=== PATIENT | female | born 1995 | race Caucasian/White ===

== ENCOUNTER 2021-04-18 16:52 | Observation (INO) ==
[2021-04-18] MEDS ORDERED: IOPAMIDOL 100 ML BOTTLE IV ONE (16:53)
--- NOTE | 2021-04-18 17:06 | Emergency Department Note ---
Abdominal Pain HPI General Chief Complaint: Abdominal Pain Stated Complaint: RLQ Abd pain x2 days Time Seen by Provider: 04/18/21 16:57 Source: patient Mode of arrival: ambulatory Limitations: no limitations History of Present Illness HPI Narrative: Narrative: 26-year-old female with a history of prediabetes, SOHA, and obesity presents the ER to be evaluated for 2 days of right lower quadrant abdominal pain. She states she is never felt pain like this before. It did not start in her flank and migrated to been consistent in the right lower quadrant. She has been nauseous without vomiting. She states she has not eaten anything today. She denies fever, chills, body aches, chest pain or chest pressure she denies dysuria, urgency, frequency or hematuria. She is on the ring contraception. She does not believe she is . She is never had an ovarian cyst rupture or cause issues before. She has no history of abdominal surgery. Her last bowel movement was this morning at approximately 10 and she has been passing gas. She has no other complaints at this time. Related Data Home Medications Medication Instructions Recorded Confirmed segesterone acet 0.15 mg-ethinyl ring VAGINAL 01/13/21 04/18/21 estradiol 0.013 mg/24 hr vaginal ring Previous Rx's Medication Instructions Recorded auto-pap machine #1 ea 03/29/19 Allergies Allergy/AdvReac Type Severity Reaction Status Date / Time lactose Allergy Unknown stomach Verified 04/18/21 15:58 pains Review of Systems ROS ROS Narrative: Narrative: All systems ED: reviewed and negative except as stated. [facility] Narrative Patient History Narrative: Narrative: Medical/Surgical/Family History All Active Problems (Updated 04/18/21 @ 18:31 by Yuan Suarez PA-C) Acute appendicitis (Acute) Fatty infiltration of liver (Acute) RLQ abdominal pain (Acute) Food allergy (Acute) Elevated BP without diagnosis of hypertension (Acute) Prediabetes (Acute) Tonsillar hypertrophy (Chronic) Obstructive sleep apnea (Chronic) Lactose intolerance (Chronic) Medical History Elevated BP without diagnosis of hypertension Food allergy Hypersomnia Lactose intolerance Obstructive sleep apnea Prediabetes Snoring Tonsillar hypertrophy Witnessed episode of apnea Surgical History History of wisdom tooth extraction (~02/2014) Family History Grandfather Heart attack Maternal Father Asthma Mother Thyroid disease Family/Other Sleep apnea siblings per patient Other Family history of skin cancer Family history- stomach cancer Social History Smoking Status: Never smoker Alcohol Intake Frequency: holiday/special occasion only Substance Use: does not use Exam Narrative Narrative: Narrative: Gen: Patient is standing in the room tying the back of her gown when I enter the room. She greets me and is in no distress Eyes: PERRL, no conjunctival injection , and symmetrical lids. Sclerae non icteric HENMT: Normocephalic Atraumatic head, external nose and ears. Moist MM. CVS: +S1/S2, No murmurs or gallops. Radial pulses 2+ and equal bilat. No swelling RESP: Unlabored respiratory effort . Clear to auscultation bilaterally (CTAB). No noted wheezes rales or ronchi. GI: Significantly tender right lower quadrant that brings her to tears when is palpated, soft and nontender in all other quadrants MSK: Extremities w/o deformity or ttp. No cyanosis or clubbing. Skin: Warm, Dry . No rashes or lesions . Cap refill less than 2. Hirsute arms Psych: Awake, Alert, & Oriented (AAO) x3. Appropriate mood and affect . General Limitations: no limitations Course Vital Signs Vital signs: Vital Signs Temperature 98.6 F 04/18/21 16:54 Pulse Rate 85 04/18/21 16:54 Respiratory Rate 20 04/18/21 16:54 Blood Pressure 164/110 04/18/21 16:54 Pulse Oximetry (%) 98 04/18/21 16:54 Temperature 98.6 F 04/18/21 16:54 Pulse Rate 85 04/18/21 16:54 Respiratory Rate 20 04/18/21 16:54 Blood Pressure 164/110 04/18/21 16:54 Pulse Oximetry (%) 98 04/18/21 16:54 MDM MDM Narrative Medical decision making narrative: Narrative: Patient is significantly tender in her right lower quadrant, she is not having urinary symptoms or hematuria. The differential is appendicitis, versus ovarian cyst rupture, versus kidney stone or my primary thoughts currently. She will be evaluated with CBC, CMP, lipase, [id number] urine and urine hCG dip. She refuses pain medications at this time. She will likely have a CT scan of her abdomen pelvis with contrast. CBC: Slightly elevated white count otherwise unremarkable CMP: Mild transaminitis consistent with fatty liver infiltration otherwise unremarkable Lipase: Normal Urine: No evidence of infection hCG dip: Negative CT abdomen pelvis with contrast: Appendicitis, oversized contraceptive ring, ventral hernia which is fat-containing, fatty liver infiltration Dr. Ross the on-call surgeon will be consulted Dr. Ross: Tell joss house keeper he will do the admission. Patient will be admitted to the surgical service for acute appendicitis, MRSA and Covid screens are pending. Discharge Plan Patient/Caregiver Discharge Instructions Pt seen by CARDIAC EXERCISE SPECIALIST/PA only: Yes Clinical Impression: Acute appendicitis, Fatty infiltration of liver Patient Disposition: Xfer As Inpt ([facility]) Follow up with: Toma Martin DO [Primary Care Provider] - Prescriptions: No Action (DME) auto-pap machine Qty: 1 0RF Rx Instructions: pressure [id number] and mask/supplies. Please contact patient to schedule. Annovera 0.15-0.013 mg/24 hour ring vaginal 0RF
[2021-04-18 17:53] LABS: Basophils # (Auto) 0.04 K/mcL (0.00-0.30); Basophils % (Auto) 0.3 % (0.0-2.0); Eosinophils # (Auto) 0.14 K/mcL (0.00-0.70); Eosinophils % (Auto) 1.1 % (0.0-7.0); Hematocrit 43.3 % (34.1-44.9); Hemoglobin 14.6 g/dL (11.2-15.7); Lymphocytes # (Auto) 2.64 K/mcL (1.50-4.80); Lymphocytes % (Auto) 21.7 % (15.5-49.0); Mean Cell Volume 91.5 fL (80.0-100.0); Mean Corpuscular HGB Conc 33.7 g/dL (31.0-36.0); Mean Platelet Volume 10.4 fL (7.4-10.4); Monocytes # (Auto) 0.58 K/mcL (0.10-0.90); Monocytes % (Auto) 4.8 % (1.0-12.0); Neutrophils % (Auto) 72.1 % (38.0-78.0); Platelet Count 290 K/mcL (140-440); RBC 4.73 M/mcL (3.59-5.38); Red Cell Distribution Width 12.1 % (11.5-14.5); WBC 12.2 K/mcL (4.5-11.0)
--- NOTE | 2021-04-18 18:10 | Cat Scan Report ---
CLINICAL INFORMATION: Right lower quadrant pain COMPARISON: None. TECHNIQUE: Following enteric contrast, 80 cc of Isovue-370 were injected intravenously, and 60 seconds later, 0.625 mm helical slices were obtained from the mid heart through the subtrochanteric regions. Following reconstruction, 2.5 mm sagittal, coronal and axial reformatted images were processed and reviewed at bone, lung and soft tissue windows. Five minutes later, 0.625 mm helical slices were obtained from the mid heart through the kidneys and viewed at soft tissue windows.The exam was performed using radiation dose optimization techniques including, but not limited to, automated exposure control, adjustment of the mA and/or kV according to patient size and use of iterative reconstruction technique. FINDINGS: The lung bases are clear. No effusions. The visualized heart is grossly normal. Abdominal images show moderate hepatic enlargement with a vertical dimension of 20 cm mid clavicular line. Marked fatty infiltration of liver noted. No focal hepatic lesion. The gallbladder and bile ducts are normal: CBD is 5 mm. Both kidneys, adrenal glands, spleen, pancreas and aorta, including aortic branches, are normal in size, configuration and attenuation without focal lesion. There is no free air, free fluid or adenopathy. Pelvic images show mild diffuse wall thickening of the urinary bladder may be artifact of underdistention. Uterus is anteflexed and normal in size: 8 x 3.2 cm. Cervical ring appears to be over sized. The posterior aspect of the ring is posterior to the external cervical os, however the anterior ring is all the way to the mid vagina. Both ovaries are normal in the approximate 3 x 2 cm. Is mild wall thickening the appendix inflammation periappendiceal fat compatible simple appendicitis. The appendix is located in the inferior pericecal region. The large bowel, small bowel and stomach are grossly normal. Bone windows show no osseous abnormality. Small paraumbilical hernia measly mesenteric fat.. IMPRESSION: 1. Simple appendicitis. Appendix is located inferior pericecal region. 2. Moderate hepatomegaly with marked diffuse fatty change. Please correlate with LFTs 3. Moderate diffuse wall the urinary bladder which may be artifact or distention. Suggest Urinalysis to ensure the absence of cystitis. 4. Oversize cervical ring for contraception. The posterior portion of the ring is posterior to the external cervical os, however, the anterior portion of the ring extends into the mid vagina rather than tightly encircling the anterior portion of the external os. Suggest refit with a smaller ring. 5. Small paraumbilical hernia containing only mesenteric fat Interpreted and Authenticated by: Shalom Ferrari 04/18/21
[2021-04-18 18:15] LABS: ALT/SGPT 46 U/L (<40); AST/SGOT 76 U/L (<32); Albumin 3.7 gm/dL (3.2-5.2); Albumin/Globulin Ratio 1.2 (1.0-2.3); Alkaline Phosphatase 70 U/L (39-117); Bilirubin,Total 0.4 mg/dL (0.1-1.0); Blood Urea Nitrogen 8 mg/dL (6-20); Calcium 8.5 mg/dL (8.6-10.4); Carbon Dioxide 25 mmol/L (22-30); Chloride 101 mmol/L (96-108); Globulin 3.2 gm/dL (2.2-3.7); Glomerular Filtration Rate 120; Glucose 92 mg/dL (70-105)
--- NOTE | 2021-04-18 19:11 | General Surg History&Physical ---
HPI History of Present Illness Patient information: Note initiated : 04/18/21 at 7:05 pm Service Date, if different from initiated Date: [] Patient: Mary Berman a 26 y/o F admitted on for RLQ Abd pain x2 days. Chief Complaint: [] Chief complaint: Acute appendicitis History of present illness: Ms. Berman is a 26 year old F with a 2-day history of right lower quadrant and hypogastric pain with associated nausea. She is seen in the emergency room with white count of 12,[address] evidence of acutely inflamed appendix. She is counseled for laparoscopic appendectomy which will be performed Review of Systems All systems: reviewed and no additional remarkable complaints except as stated Respiratory Respiratory: Present snoring and other (Sleep apnea) PFSH PFSH All Active Problems Acute appendicitis (Acute) Fatty infiltration of liver (Acute) RLQ abdominal pain (Acute) Food allergy (Acute) Elevated BP without diagnosis of hypertension (Acute) Prediabetes (Acute) Tonsillar hypertrophy (Chronic) Obstructive sleep apnea (Chronic) Lactose intolerance (Chronic) Medical History Elevated BP without diagnosis of hypertension Food allergy Hypersomnia Lactose intolerance Obstructive sleep apnea Prediabetes Snoring Tonsillar hypertrophy Witnessed episode of apnea Surgical History History of wisdom tooth extraction (~02/2014) Family History Grandfather Heart attack Maternal Father Asthma Mother Thyroid disease Family/Other Sleep apnea siblings per patient Other Family history of skin cancer Family history- stomach cancer Social History marital status: occupational status: employed occupation: [employer] smoking status: Never smoker alcohol intake frequency: holiday/special occasion only substance use type: does not use MEDS/ALLERGIES Home Medications and Allergies Home Medications Medication Instructions Recorded Confirmed Type auto-pap machine #1 ea 03/29/19 04/18/21 Rx segesterone acet 0.15 mg-ethinyl ring VAGINAL 01/13/21 04/18/21 History estradiol 0.013 mg/24 hr vaginal ring Allergies Allergy/AdvReac Type Severity Reaction Status Date / Time lactose Allergy Unknown stomach Verified 04/18/21 15:58 pains Physical Examination Vital Signs Vital signs: Temp Pulse Resp BP Pulse Ox 98.6 F 85 20 130/83 100 04/18/21 16:54 04/18/21 18:16 04/18/21 16:54 04/18/21 18:16 04/18/21 18:16 General physical appearance General physical exam: well nourished, no distress, moderate pain and obese Eyes Eye exam: PERRL and normal ocular movement ENT ENT exam: normal mucosa, no hearing loss and no congestion Head Head exam IM: Present atraumatic, normal inspection and normocephalic Neck Neck exam: no masses, no bruits, trachea midline, no lymphadenopathy and no venous distension Cardiovascular Cardiovascular exam IM: Present normal rate and rhythm, RRR, +S1 and +S2; Absent JVD or systolic murmur Respiratory Respiratory exam: normal expansion, normal respiratory effort and clear to auscultation Abdomen Abdomen: Present tender (Tenderness in right lower quadrant and hypogastrium; hypoactive bowel sounds) and guarding (Mild guarding with rebound right lower quadrant) Integumentary Integumentary: Present no rash, no growths and no abnormal pigmentation Neurologic Neurologic: Present normal coordination and normal sensation Musculoskeletal Musculoskeletal: Present normal gait and normal posture Psychiatric Psychiatric: Present oriented to time, oriented to person, oriented to place, speech is normal and memory intact Results Labs Result diagrams: 04/18/21 17:17 04/18/21 17:17 Labs: Abnormal lab results 04/18/21 04/18/21 Range/Units 17:17 17:17 WBC 12.2 H (4.5-11.0) K/mcL Absolute Neutrophils 8.78 H (1.80-8.00) K/mcL Calcium 8.5 L (8.6-10.4) mg/dL AST 76 H (<32) U/L ALT 46 H (<40) U/L Diabetes panel 04/18/21 Range/Units 17:17 Sodium 136 (133-145) mmol/L Potassium 3.7 (3.3-5.1) mmol/L Chloride 101 (96-108) mmol/L Carbon Dioxide 25 (22-30) mmol/L BUN 8 (6-20) mg/dL Creatinine 0.7 (0.6-1.1) mg/dL Glucose 92 (70-105) mg/dL Calcium 8.5 L (8.6-10.4) mg/dL AST 76 H (<32) U/L ALT 46 H (<40) U/L Alkaline Phosphatase 70 (39-117) U/L Total Protein 6.9 (5.9-8.4) gm/dL Albumin 3.7 (3.2-5.2) gm/dL Calcium panel 04/18/21 Range/Units 17:17 Calcium 8.5 L (8.6-10.4) mg/dL Albumin 3.7 (3.2-5.2) gm/dL Pituitary panel 04/18/21 Range/Units 17:17 Sodium 136 (133-145) mmol/L Potassium 3.7 (3.3-5.1) mmol/L Chloride 101 (96-108) mmol/L Carbon Dioxide 25 (22-30) mmol/L BUN 8 (6-20) mg/dL Creatinine 0.7 (0.6-1.1) mg/dL Glucose 92 (70-105) mg/dL Calcium 8.5 L (8.6-10.4) mg/dL Adrenal panel 04/18/21 Range/Units 17:17 Sodium 136 (133-145) mmol/L Potassium 3.7 (3.3-5.1) mmol/L Chloride 101 (96-108) mmol/L Carbon Dioxide 25 (22-30) mmol/L BUN 8 (6-20) mg/dL Creatinine 0.7 (0.6-1.1) mg/dL Glucose 92 (70-105) mg/dL Calcium 8.5 L (8.6-10.4) mg/dL Total Bilirubin 0.4 (0.1-1.0) mg/dL AST 76 H (<32) U/L ALT 46 H (<40) U/L Alkaline Phosphatase 70 (39-117) U/L Total Protein 6.9 (5.9-8.4) gm/dL Albumin 3.7 (3.2-5.2) gm/dL All other labs normal. A/P Assessment and plan (1) Acute appendicitis: Status: Acute (2) Obstructive sleep apnea: Status: Chronic Narrative A/P Narrative: Patient is counseled for laparoscopic appendectomy Zosyn 3.375 g IV every 6 hours Time Spent With Patient Time: Total time spent is greater than 50% in coordination of care (as documented) at patient's floor/unit and/or counseling patient:
[2021-04-18] MEDS ORDERED: ONDANSETRON 4 MG/2 ML VIAL IV PRN ×2 (19:12→20:01)
[2021-04-18] MEDS ORDERED: ROCURONIUM 10 MG/ML ML IV ONE (19:45)
[2021-04-18] MEDS ORDERED: GLYCOPYRROLATE 0.2 MG/ML VIAL IV ONE (19:45)
[2021-04-18] MEDS ORDERED: HYDROmorphone 1 MG/ML SYRINGE ONE ×2 (19:45→22:21)
[2021-04-18] MEDS ORDERED: LIDOCAINE HCL/PF 100 MG/5 ML SYRINGE IV ONE (19:45)
[2021-04-18] MEDS ORDERED: ONDANSETRON 4 MG/2 ML VIAL ONE (19:45)
[2021-04-18] MEDS ORDERED: PROPOFOL 200 MG/20 ML VIAL IV ONE (19:45)
[2021-04-18] MEDS ORDERED: ePHEDrine 50 MG/5 ML SYRINGE (ANEST) IV ONE (19:45)
[2021-04-18] MEDS ORDERED: DEXAMETHASONE 10 MG/ML VIAL ONE (19:45)
[2021-04-18] MEDS ORDERED: PHENYLephrine 1 MG/10 ML SYRINGE (ANEST) ONE (19:45)
[2021-04-18] MEDS ORDERED: fentaNYL 100 MCG/2 ML VIAL IV ONE (19:45)
[2021-04-18] MEDS ORDERED: MAGNESIUM SULFATE 4 GM/100 ML BAG IV ONE (19:45)
[2021-04-18] MEDS ORDERED: SUCCINYLCHOLINE 20 MG/ML ML IV ONE (19:45)
[2021-04-18] MEDS ORDERED: KETAMINE 50 MG/ML Syringe (ANEST) IV ONE (19:45)
[2021-04-18] MEDS ORDERED: MIDAZOLAM 2 MG/2 ML VIAL ONE (19:45)
[2021-04-18] MEDS ORDERED: METOPROLOL TARTRATE 5 MG/5 ML VIAL IV PRN (20:01)
[2021-04-18] MEDS ORDERED: FLUMAZENIL 0.1 MG/ML ML IV PRN (20:01)
[2021-04-18] MEDS ORDERED: ACETAMINOPHEN 1,000 MG/100 ML BAG IV ONE (20:01)
[2021-04-18] MEDS ORDERED: MEPERIDINE 25 MG/ML VIAL IV PRN (20:01)
[2021-04-18] MEDS ORDERED: HYDROmorphone 0.5 MG/0.5 ML SYRINGE IV PRN (20:01)
[2021-04-18] MEDS ORDERED: LACTATED RINGERS 250 ML IV PRN (20:01)
[2021-04-18] MEDS ORDERED: METHOCARBAMOL 1,000 MG/10 ML VIAL IV PRN (20:01)
[2021-04-18] MEDS ORDERED: NALOXONE HCL 0.4 MG/ML VIAL IV PRN (20:01)
[2021-04-18] MEDS ORDERED: LABETALOL 5 MG/ML ML IV PRN (20:01)
[2021-04-18] MEDS ORDERED: IPRATROPIUM/ALBUTEROL 3 ML AMPUL.NEB NEB PRN (20:01)
[2021-04-18] MEDS ORDERED: BENZOCAINE/MENTHOL 1 LOZENGE PO PRN (20:01)
[2021-04-18] MEDS ORDERED: fentaNYL 100 MCG/2 ML VIAL IV PRN (20:01)
[2021-04-18] MEDS ORDERED: LACTATED RINGERS 1,000 ML IV SCH (20:15)
--- NOTE | 2021-04-18 20:51 | Brief Operative Note ---
Brief Operative Note Date of procedure: 04/18/21 Pre-op diagnosis: acute appendicitis Post-op diagnosis: other (inflammatory mass of appendix with hemorrhagic nodule) Procedure: laparoscopic appendectomy with partial cecectomy Grafts/Implants: No (jocelyn drain) Anesthesia: GETA Findings: short thickened appendix with firm hemorrhagic nodule and thickened mesoappendix no adenopathy noted Complications: none Surgeon: Ibeth Ross Estimated blood loss (cc): 20 Specimens Removed/Pathology: other (appendix) Condition: stable Disposition: PACU
[2021-04-18] MEDS: HYDROmorphone 1 MG/ML SYRINGE IV PRN (22:23)
[2021-04-18] MEDS: 0.9 % SODIUM CHLORIDE 1,000 ML IV SCH (22:30)
[2021-04-18] MEDS: PIPERACILLIN SODIUM/TAZOBACTAM 3.375 GM in DEXTROSE 5% IN WATER 50 ML IV SCH ×2 (23:39→23:47)
[2021-04-18] MEDS: 0.9 % SODIUM CHLORIDE 10 ML SYRINGE IV SCH (23:40)
[2021-04-19] MEDS: HYDROmorphone 1 MG/ML SYRINGE IV PRN ×5 (00:36→15:38)
[2021-04-19] MEDS ORDERED: HYDROmorphone 1 MG/ML SYRINGE ONE ×2 (00:40→05:31)
[2021-04-19] MEDS: 0.9 % SODIUM CHLORIDE 10 ML SYRINGE IV SCH ×3 (04:10→22:32)
[2021-04-19] MEDS: 0.9 % SODIUM CHLORIDE 1,000 ML IV SCH ×5 (05:30→22:33)
[2021-04-19] MEDS: PIPERACILLIN SODIUM/TAZOBACTAM 3.375 GM in DEXTROSE 5% IN WATER 50 ML IV SCH ×3 (05:30→17:07)
[2021-04-19 08:02] LABS: Basophils # (Auto) 0.02 K/mcL (0.00-0.30); Basophils % (Auto) 0.2 % (0.0-2.0); Eosinophils # (Auto) 0 K/mcL (0.00-0.70); Eosinophils % (Auto) 0 % (0.0-7.0); Hematocrit 41.8 % (34.1-44.9); Lymphocytes # (Auto) 1.46 K/mcL (1.50-4.80); Lymphocytes % (Auto) 11.3 % (15.5-49.0); Mean Cell Volume 91.9 fL (80.0-100.0); Mean Corpuscular HGB Conc 33.5 g/dL (31.0-36.0); Mean Platelet Volume 10.5 fL (7.4-10.4); Monocytes # (Auto) 0.33 K/mcL (0.10-0.90); Monocytes % (Auto) 2.6 % (1.0-12.0); Neutrophils % (Auto) 85.9 % (38.0-78.0); Platelet Count 319 K/mcL (140-440); RBC 4.55 M/mcL (3.59-5.38); Red Cell Distribution Width 11.9 % (11.5-14.5); WBC 12.9 K/mcL (4.5-11.0)
[2021-04-19 08:16] LABS: ALT/SGPT 41 U/L (<40); AST/SGOT 60 U/L (<32); Albumin 3.4 gm/dL (3.2-5.2); Albumin/Globulin Ratio 1.1 (1.0-2.3); Alkaline Phosphatase 65 U/L (39-117); Bilirubin,Direct < 0.2 mg/dL (0-0.3); Bilirubin,Total 0.5 mg/dL (0.1-1.0); Blood Urea Nitrogen 6 mg/dL (6-20); Calcium 7.6 mg/dL (8.6-10.4); Carbon Dioxide 20 mmol/L (22-30); Chloride 101 mmol/L (96-108); Globulin 3.1 gm/dL (2.2-3.7); Glomerular Filtration Rate 126; Glucose 127 mg/dL (70-105); Lactate Dehydrogenase 249 U/L (135-225); Phosphorous 3.1 mg/dL (2.5-4.5); Triglycerides 126 mg/dL (<150); Uric Acid 4.6 mg/dL (2.5-8.0)
--- NOTE | 2021-04-19 15:16 | General Surgery Progress Note ---
SUBJECTIVE Subjective Patient information: Note initiated : 04/19/21 at 3:13 pm Service Date, if different from initiated Date: [] Patient: Mary Berman 26 y/o F admitted on 04/18/21 for RLQ Abd pain x2 days. Chief Complaint: [] Principal diagnosis: Acute appendicitis; appendiceal mass Interval history: Patient is improved however she states that she does not feel well. She has been afebrile. Her white blood count is 12.9 and hemoglobin is 14. Potassium, BUN, creatinine are normal. She does have significant abdominal distention though she states that she is having. JACQUI drainages serosanguineous. Constitutional Vitals: Vital Signs Temp Pulse Resp BP Pulse Ox 98.5 F 93 H 15 127/79 95 04/19/21 11:30 04/19/21 11:30 04/19/21 11:30 04/19/21 11:30 04/19/21 11:30 Period Temp Pulse Resp BP Sys/Martinez Pulse Ox Last 24 Hr 97.5 F-98.7 F 71-108 14- 127-181/79-114 90-100 Intake and Output 04/19/21 04/19/21 04/19/21 05:59 13:59 21:59 Intake Total 1450 1100 Output Total 50 Balance 1400 1100 Weight 233 lb 6 oz Intake & Output: Intake & Output 04/19/21 04/19/21 04/19/21 05:59 13:59 21:59 Intake Total 1450 1100 Output Total 50 Balance 1400 1100 Weight 233 lb 6 oz Intake: IV 1050 1100 Sodium Chloride 0.9% 1,000 ml @ 1000 1000 150 mls/hr IV .[id number] RASHAD Rx#: [id number] Zosyn 3.375 gm In Dextrose 5% 50 100 in Water 50 ml @ 100 mls/hr IV Q6H RASHAD Rx#:[id number] Oral 400 Output: Drainage 50 Other: Meal Breakfast Percent of Meal Consumed 75% Feeding Ability Independent # Voids 1 1 # Unmeasured Emesis 1 Neck Neck exam: Present full ROM and normal inspection; Absent tenderness Respiratory Respiratory exam: Present normal respiratory exam and CTAB; Absent wheezes Cardiovascular Cardiovascular exam: Present normal rate and rhythm, RRR, +S1 and +S2; Absent JVD GI/Abdominal GI/Abdominal exam: Present diminished bowel sounds and distended Additional comments: JACQUI with serosanguineous drainage Extremities Exam Extremities exam: Present normal inspection and neurovascular intact A/P Assessment and plan (1) Acute appendicitis: Status: Acute Narrative A/P Narrative: Delay discharge Add Reglan 10 mg IV every 6 hours GI soft diet as tolerated Time Spent With Patient Time: Total time spent is greater than 50% in coordination of care (as documented) at patient's floor/unit and/or counseling patient:
[2021-04-19] MEDS: METOCLOPRAMIDE 10 MG/2 ML VIAL IV SCH (17:06)
[2021-04-19] MEDS: oxyCODONE HCL 5 MG TABLET PO PRN (19:47)
[2021-04-20] MEDS: PIPERACILLIN SODIUM/TAZOBACTAM 3.375 GM in DEXTROSE 5% IN WATER 50 ML IV SCH ×3 (00:06→13:11)
[2021-04-20] MEDS: METOCLOPRAMIDE 10 MG/2 ML VIAL IV SCH ×3 (00:07→13:11)
[2021-04-20] MEDS: oxyCODONE HCL 5 MG TABLET PO PRN ×4 (00:25→13:58)
[2021-04-20] MEDS: 0.9 % SODIUM CHLORIDE 1,000 ML IV SCH ×2 (05:00→12:36)
[2021-04-20] MEDS: 0.9 % SODIUM CHLORIDE 10 ML SYRINGE IV SCH ×2 (06:12→14:34)
--- NOTE | 2021-04-20 12:15 | Discharge Summary ---
Discharge Provider Provider Patient information: Note initiated : 04/20/21 at 12:07 pm Service Date, if different from initiated Date: [] Patient: Mary Berman 26 y/o F admitted on 04/18/21 for RLQ Abd pain x2 days. Chief Complaint: [] Date of admission: 04/18/21 21:51 Discharge date: 04/20/21 Primary care physician: Toma Martin DO Admitting clinician: Ibeth Ross Attending physician on admission: Ibeth Ross Consults: 04/18/21 Consult to Physician [CONS] Stat Comment: Consulting Provider: Ibeth Ross Reason For Exam: Physician to Consult Attending physician on discharge: Ibeth Ross Discharging clinician: Ibeth Ross COURSE Hospital Course Hospital course: 26-year-old female who was admitted with right lower quadrant pain nausea and vomiting. Evaluation revealed acute appendicitis. She had laparoscopic appendectomy on 04/18/2021. At the time of appendectomy she was found to have a very hard in foreshortened appendix with extension into the base of the cecum and a hard almost calcified hematoma on the wall of the appendix. Extended appendectomy was done with resection of the base of the cecum. Discharge was delayed because of poor control of pain and nausea with bloating. Her drain has only put out serosanguineous fluid. Patient is afebrile and is discharged home in satisfactory condition. 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 Obstructive sleep apnea Reason for admission: Acute appendicitis Procedures: Laparoscopic appendectomy with partial CECECTOMY Pertinent studies/significant findings: CT of abdomen and pelvis Complications: None Time Spent with Patient Time attestation: Total time spent providing and/or coordinating discharge services: Physical Examination Vital Signs Vital signs: Temp Pulse Resp BP Pulse Ox 98.0 F 98 H 20 143/93 98 04/20/21 08:11 04/20/21 04:00 04/20/21 08:11 04/20/21 08:11 04/20/21 08:11 General physical appearance General physical exam: well developed, well nourished, no distress, moderate pain and obese Eyes Eye exam: PERRL and normal ocular movement ENT ENT exam: normal pinna, normal mucosa and no hearing loss Head Head exam IM: Present atraumatic, normal inspection and normocephalic Neck Neck exam: no masses, no bruits, trachea midline, no lymphadenopathy and no venous distension Cardiovascular Cardiovascular exam IM: Present normal rate and rhythm, RRR, +S1 and +S2; Absent JVD or tachycardia Respiratory Respiratory exam: normal expansion, normal respiratory effort and clear to auscultation Abdomen Abdomen: Present soft, bowel sounds (Normal bowel sounds) and distended (Mild distention) Integumentary Integumentary: Present no rash, no growths and no abnormal pigmentation Neurologic Neurologic: Present normal coordination Musculoskeletal Musculoskeletal: Present normal gait and normal posture Psychiatric Psychiatric: Present oriented to time, oriented to person, oriented to place, speech is normal and memory intact Discharge Plan Patient/Caregiver Discharge Instructions Activity: increase activity as tolerated Diet: Regular Diet Stand Alone Forms: Work/Release Restrictions Prescriptions: New oxycodone-acetaminophen [Endocet] 10-325 mg Tablet 1 tab PO Q4H PRN (Reason: Pain) Qty: 40 0RF promethazine 25 mg Tablet 25 mg PO Q4H PRN (Reason: Nausea) Qty: 20 0RF levofloxacin [levofloxacin] 750 MG tablet 750 mg PO DAILY Qty: 10 0RF No Action Annovera 0.15-0.013 mg/24 hour ring 0.15 ring vaginal Q24 0RF (DME) auto-pap machine medium aerosol 0RF Rx Instructions: pressure [id number] and mask/supplies. Please contact patient to schedule. Follow Up Plan Follow up with: Toma Martin DO [Primary Care Provider] - Ibeth Ross MD [Physician] - (Contact office tomorrow for appointment in 2 weeks) Patient Disposition: Home, Self-Care Prognosis: Good Rehab Potential: Good I certify that the patient requires SNF services: No Overall status at discharge: patient is progressing back to baseline Discharge Orders: Discharge Order (Routine); Ordered 04/20/21 Ordered By: Ibeth Ross Pending Pending Pending: Resuscitation Status Resuscitate (Full Code) Diet GI Soft/Transitional Start Sat Apr 19 1517 Hydromorphone HCl (Hydromorphone 1 Mg/Ml Syringe) 1 mg IV Q2HP PRN; Protocol PRN Reason: Per Pain Protocol Last Admin: 04/19/21 15:38 Dose: 1 mg Documented by: Admin: 04/19/21 13:10 Dose: 1 mg Documented by: Admin: 04/19/21 10:00 Dose: 1 mg Documented by: Admin: 04/19/21 05:27 Dose: 1 mg Documented by: Admin: 04/19/21 00:36 Dose: 1 mg Documented by: Admin: 04/18/21 22:23 Dose: 1 mg Documented by: ABBY Sodium Chloride (Sodium Chloride 0.9%) 1,000 mls @ 150 mls/hr IV .Q6H40M RASHAD Last Admin: 04/20/21 05:00 Dose: 150 mls/hr Documented by: Infusion: 04/20/21 02:28 Dose: 150 mls/hr Documented by: Admin: 04/19/21 22:33 Dose: Not Given Documented by: Admin: 04/19/21 19:47 Dose: 150 mls/hr Documented by: Infusion: 04/19/21 19:47 Dose: 150 mls/hr Documented by: Admin: 04/19/21 14:59 Dose: Not Given Documented by: Admin: 04/19/21 13:13 Dose: 150 mls/hr Documented by: Infusion: 04/19/21 12:11 Dose: 150 mls/hr Documented by: Admin: 04/19/21 05:30 Dose: 150 mls/hr Documented by: Infusion: 04/19/21 05:11 Dose: 150 mls/hr Documented by: Admin: 04/18/21 22:30 Dose: 150 mls/hr Documented by: ABBY Piperacillin Sod/Tazobactam (Sod 3.375 gm/ Dextrose) 50 mls @ 100 mls/hr IV Q6H [facility]; Protocol Last Infusion: 04/20/21 06:16 Dose: 0 mls/hr Documented by: Admin: 04/20/21 05:05 Dose: 100 mls/hr Documented by: Infusion: 04/20/21 00:40 Dose: 0 mls/hr Documented by: Admin: 04/20/21 00:06 Dose: 100 mls/hr Documented by: Infusion: 04/19/21 17:40 Dose: 0 mls/hr Documented by: Admin: 04/19/21 17:07 Dose: 100 mls/hr Documented by: Infusion: 04/19/21 12:10 Dose: 0 mls/hr Documented by: Admin: 04/19/21 11:39 Dose: 100 mls/hr Documented by: Infusion: 04/19/21 06:00 Dose: 0 mls/hr Documented by: Admin: 04/19/21 05:30 Dose: 100 mls/hr Documented by: Infusion: 04/19/21 00:28 Dose: 0 mls/hr Documented by: Admin: 04/18/21 23:47 Dose: 100 mls/hr Documented by: Admin: 04/18/21 23:39 Dose: Not Given Documented by: ABBY Metoclopramide HCl (Metoclopramide 10 Mg/2 Ml Vial) 10 mg IV Q6 [facility] Last Admin: 04/20/21 05:01 Dose: 10 mg Documented by: Admin: 04/20/21 00:07 Dose: 10 mg Documented by: Admin: 04/19/21 17:06 Dose: 10 mg Documented by: FANG Ondansetron HCl (Ondansetron 4 Mg/2 Ml Vial) 4 mg IV Q6HP PRN PRN Reason: Nausea And Vomiting Last Admin: 04/18/21 23:36 Dose: 4 mg Documented by: ABBY Oxycodone HCl (Oxycodone Hcl 5 Mg Tablet) 10 mg PO Q4HP PRN; Protocol PRN Reason: Per Pain Protocol Last Admin: 04/20/21 09:47 Dose: 10 mg Documented by: Admin: 04/20/21 05:00 Dose: 10 mg Documented by: Admin: 04/20/21 00:25 Dose: 10 mg Documented by: Admin: 04/19/21 19:47 Dose: 10 mg Documented by: MARK Sodium Chloride (0.9 % Sodium Chloride 10 Ml Syringe) 10 ml IV Q8 [facility] Last Admin: 04/20/21 06:12 Dose: Not Given Documented by: Admin: 04/19/21 22:32 Dose: Not Given Documented by: Admin: 04/19/21 13:53 Dose: 10 ml Documented by: Admin: 04/19/21 04:10 Dose: Not Given Documented by: Admin: 04/18/21 23:40 Dose: Not Given Documented by: ABBY Shift Summary 04/20/21 04:27 Shift Summary by Kiah Romero Primary Diagnosis: appendicitis Lap Appy Registration Status: OBS Day of Hospitalization: 04/18/2021 Date of Surgery (if applicable): 04/18/21 Pertinent Medical Dx/Issues (may be more than one): SOHA, HTN Interventions (O2, wounds, diuresis, etc): JACQUI to lower abdomen, sero-sang drainage Vital Signs with Trends: HR slightly elevated (but some pain present). BP in more normal range this shift, 130/80 Meds (abo, pain, BP, etc): Zosyn Q6, Oxy 10 or Dilaudid for pain, Reglan Lines/Tubes: IV to left AC SL, RFA NS 150mL/hr Oxygen needs (home use vs. current use): RA Lab/Rad results: 04/19 WBC 12.9 Cardiac Rhythm (if applicable), alarms, trends: N/A Date of last BM: 04/17 Elimination: Bathroom, up with SBA for managing lines Recommendations/questions for MD (DC Chin? DC CM? PICC needed?): Per Dr. Ross, continue NS Vent/Bipap/Cpap: Cpap at night Trends (is the patient improving?): Doing well, voiding sufficiently, no n/v this shift. Activity: Independent in bed, help with IV pole and socks when getting up. Expected date of discharge: 04/20 Discharge Plan (needs, disposition, etc): Home with Initialized on 04/20/21 04:27 - END OF NOTE
--- NOTE | 2021-04-30 14:07 | Operative Note ---
DATE OF OPERATION: 04/18/2021 PREOPERATIVE DIAGNOSIS: Appendicitis. POSTOPERATIVE DIAGNOSIS: Inflammatory mass of the appendix with hemorrhagic nodule. PROCEDURE: Laparoscopic appendectomy with partial cecectomy. SURGEON: Ibeth Ross M.D. FINDINGS: Short, thickened appendix with firm, hemorrhagic nodule and thickened mesoappendix without significant adenopathy. DESCRIPTION OF PROCEDURE: Under general anesthesia, the patient's abdomen was prepped and draped in a sterile field. Supraumbilical incision was made. Veress needle was inserted. The abdomen was insufflated with 2.5 liters of CO2. A 12 mm port was placed. Laparoscope was placed. The patient was placed in deep Trendelenburg position and rotated to the left. A 5 mm port and 12 mm port were placed in the suprapubic midline in the left lower quadrant, respectively. Dissection of the base of the cecum revealed a short, thickened, fibrotic appendix with a hemorrhagic nodule on the wall of the appendix and thickened mesoappendix. Inspection of the ileocolic mesentery did not reveal any significant adenopathy. Inspection of the base of the cecum revealed the base to be slightly thickened, so it was elected to do a partial cecectomy to make sure that all of the inflamed tissue was removed. The possibility of a neoplasm was also entertained. The fibrotic appendix was from the posterior wall of the cecum and the cecum was placed on stretch. The cecum was then transected close to the insertion of the ileocecal valve, taking care not to impede the entrance of the ileum. This was completed with three fires of the Endo PATY stapler. The mesoappendix was then serially dissected, clipped with multiple clips and divided. The appendix was placed in an Endopouch and retrieved. Irrigation was carried out. A Jacob drain was placed in the pelvis and brought out through the suprapubic midline and port. CO2 was allowed to escape from the abdomen and the other ports were removed. The fascia at the umbilicus was closed with interrupted 0 Vicryl. The drain was secured with 2-0 nylon. Skin incisions were closed with abdiel. The patient tolerated the procedure well. Tegaderm dressings were placed. She was awakened, transferred to a bed, and taken to the postanesthetic care unit in satisfactory condition. LCS:iris Job ID: [id number] Doc ID: [id number] Ibeth Ross M.D.
== END 2021-04-20 15:10 | disposition home or self-care (01) ==
LOC: ED 16:52 → SUR 19:00 → MEDSUR 19:22 → SUR 19:22 → MEDSUR 21:51
PROVIDERS: ADMIT Family Medicine Adult Medicine; ATTEND Family Medicine Adult Medicine